=== PATIENT | male | born 1990 | race Caucasian/White ===

== ENCOUNTER 2021-11-17 16:25 | Emergency (ER) | payer MEDICAID, SELFPAY ==
[2021-11-17 16:27] VITALS: BP 143/90; PULSE 99; RESP 17; TEMP 36.6; O2SAT 98; BMI 26.5
--- NOTE | 2021-11-17 16:47 | CT_ITS ---
STUDY: CT BRAIN WITHOUT CONTRAST REASON FOR EXAM: Male, 31 years old. head injury RADIATION DOSAGE (If Supplied By Facility): CTDIvol = ( 44.99 ) mGy, DLP = ( 812.98 ) mGycm TECHNIQUE: Transaxial CT imaging of the brain was performed without administration of intravenous contrast material. Individualized dose optimization techniques were used for this CT. COMPARISON: No relevant priors. FINDINGS: Normal soft tissue structures. Normal calvarium. Normal size ventricles and extra-axial spaces for the patient''s age. Normal white matter tracts of the cerebral hemispheres. Normal basal ganglia and thalami. Normal brainstem. Normal cerebellum. There is no intracranial hemorrhage. There are no findings of an acute ischemic infarction. Normal visualized paranasal sinuses. CT/Brain/Head without Contrast IMPRESSION: Normal unenhanced CT scan of the brain. Electronically Signed: Gregory López MD at 17:20 EDT ,
--- NOTE | 2021-11-17 17:05 | EDS_ITS ---
HPI <ANGY Ocampo - Last Filed: 11/17/21 17:09> History of Present Illness Chief Complaint: Head Injury Narrative Narrative: 31-year-old male with history of post manic stress disorder, anxiety, depression presents to the emergency department with complaints of left-sided headache after a fall from 10 feet 1.5 months ago. Patient states he locked himself out of his house on October 09, 2021. Patient states that he was going up a ladder, fell off the ladder striking the right side of his head on a shovel. Patient states he had multiple minutes of LOC. Patient states that over the last month, he has had difficulty sleeping, has had personality changes, and is here for a CT scan of his brain. Patient denies any other trauma, any drug use, any blood thinners. [facility] <ANGY Ocampo - Last Filed: 11/17/21 17:09> [facility] Medical History (Updated 11/17/21 @ 17:09 by ANGY Ocampo) ADHD Asthma Myocarditis PTSD (post-traumatic stress disorder) Home Medications bupropion HCl [Wellbutrin] 75 mg PO DAILY 11/17/21 [History Last Taken Unknown] dextroamphetamine-amphetamine [Adderall] 20 mg PO DAILY 11/17/21 [History Last Taken Unknown] lithium aspartate 5 mg PO DAILY 11/17/21 [History Last Taken Unknown] Allergy/AdvReac Type Severity Reaction Status Date / Time No Known Allergies Allergy Verified 11/17/21 16:28 Social History Smoking Status: Never smoker ROS <ANGY Ocampo - Last Filed: 11/17/21 17:09> ROS ED ROS Narrative Constitutional: Negative for fever, chills, weight loss, weakness Eyes: Negative for vision loss, vision change, double vision ENT: Negative for any sore throat, ear pain, congestion Cardiovascular: Negative for any chest pain, tightness, palpitations, racing heartbeat Respiratory: Negative for any cough, sputum production, hemoptysis, shortness of breath, shortness of breath on exertion, orthopnea Gastrointestinal: Negative for any abdominal pain, nausea, vomiting, diarrhea, constipation, blood in stool, blood in vomit : Negative for any urinary frequency, incontinence, dysuria, retention, blood in urine Muscle skeletal: Negative for any muscle joint pain, stiffness, myalgias, arthralgias, neck pain, back pain Neurological: Negative for any , dizziness, syncope, numbness or tingling. Positive for headache Skin: Negative for any rashes, lumps, itching, abrasions, lacerations Psychiatric: Negative for any depression, anxiety, stress, suicidal ideation, homicidal ideation. Positive for irritation, difficulty sleeping Hematologic: Negative for any easy bruising, excessive bruising, easy bleeding Allergies: Negative for any eczema, hives, rash EXAM <ANGY Ocampo - Last Filed: 11/17/21 17:09> Physical Exam Narrative Exam Narrative: Vital signs reviewed. HEET: Head normocephalic atraumatic, TMs clear bilaterally. Posterior pharynx is clear, moist mucous membranes. Nares clear bilaterally. Pupils are equal round reactive to light. Negative for any hemotympanum, septal hematoma. Neck: Supple with no lymphadenopathy or tenderness. No signs of meningismus, negative jolt sign. Cardiac: Regular rate and rhythm no murmurs gallops or rubs, equal peripheral pulses bilaterally. Respiratory: Lungs clear to auscultation bilaterally. No chest tenderness. Abdomen: Soft, nontender, nondistended. No abdominal bruit or pulsatile masses. No hepatosplenomegaly Extremities: No peripheral edema, no signs of gross trauma or deformity. Active full range of motion of all extremities. Neuro: Cranial nerves II through XII intact, no focal neurological deficits. Skin: Clean dry and intact with no rash, purpura, petechiae, vesicles or pustules. Backslash flank: No CVA tenderness, no midline spinal tenderness, no deformity. Psych: Normal mood and affect. No SI, HI or acute psychosis. Const Vital Signs: 11/17/21 16:27 11/17/21 16:36 Temperature 97.8 F Temperature Source Temporal Pulse Rate 99 Respiratory Rate 17 Respiratory Effort Normal Respiratory Depth Normal Respiratory Pattern Normal Blood Pressure 143/90 H Blood Pressure Mean 107 Pulse Ox 98 Oxygen Delivery Method Room Air Positive well nourished and well developed General Appearance ED: well developed HEENT atraumatic <Dr. Denilson Alberto MD - Last Filed: 11/17/21 17:40> Physical Exam Const Vital Signs: 11/17/21 16:27 11/17/21 16:36 Temperature 97.8 F Temperature Source Temporal Pulse Rate 99 Respiratory Rate 17 Respiratory Effort Normal Respiratory Depth Normal Respiratory Pattern Normal Blood Pressure 143/90 H Blood Pressure Mean 107 Pulse Ox 98 Oxygen Delivery Method Room Air [facility] <ANGY Ocampo - Last Filed: 11/17/21 17:09> [facility] Narrative Medical decision making narrative: Patient appears well, patient appears nontoxic, vital signs are stable. Patient presents to the emergency department after head injury on October 09, 2021. Patient did receive a CT scan of the brain, this was unremarkable for any acute process. I did have a long conversation with this patient regarding anxiety, depression, patient will follow up with a psychiatrist in the [facility] as soon as possible. Patient has no suicidal, homicidal ideations. Patient will was also giving education regarding concussion syndrome. Patient will follow-up with his PCP as well as psychologist. Patient is stable for discharge instructed return for any worsening symptoms. Radiography Diagnostic Testing: Clinical Impression(s) from Imaging Studies Brain CT 11/17/21 16:47 IMPRESSION: Normal unenhanced CT scan of the brain. Electronically Signed: Gregory López MD at 17:20 EDT , <Dr. Denilson Alberto MD - Last Filed: 11/17/21 17:40> [facility] Narrative Medical decision making narrative: I have personally performed a face to face assessment of the patient and have reviewed the CONNIE Note. I performed a substantive portion of the visit including all aspects of the following. My bolanos findings include: History is [31-year-old male who I am seeing with her nurse practitioner. Patient had a head injury a month ago on October 09. He was knocked unconscious. He is complaining of irritability, trouble sleeping intermittent headaches.. Otherwise denies complaints. Prior to today he was not evaluated for this.] Exam is [31-year-old male normal exam. Face nontender. No swelling. Pupils round reactive light. No contusions or hematomas. C-spine nontender. Trachea midline. Heart, lung, chest, abdomen and back exam unremarkable. Extremities are nontender. Neurologic exam normal. GCS of 15.] Medical Decision Making [CAT scan was obtained. Reviewed by me. Read by the radiologist negative. Treated as a closed head injury.] Other additions or changes: [None] Radiography Diagnostic Testing: Clinical Impression(s) from Imaging Studies Brain CT 11/17/21 16:47 IMPRESSION: Normal unenhanced CT scan of the brain. Electronically Signed: Gregory López MD at 17:20 EDT , Discharge Plan Triage Chief Complaint: Head Injury ED Midlevel Provider: Francisco Sherman ED Provider: Denilson Alberto Dx/Rx/DC Orders Clinical Impression: Fall, CHI (closed head injury), Concussion syndrome Instructions: ED Concussion Prescriptions: No Action dextroamphetamine-amphetamine [Adderall] 20 mg Tablet 20 mg PO DAILY RF: 0 bupropion HCl [Wellbutrin] 75 mg Tablet 75 mg PO DAILY RF: 0 lithium aspartate 5 mg Capsule 5 mg PO DAILY RF: 0 Primary Care Provider: Care Physician,No Primary Referrals: Care Physician,No Primary [Primary Care Provider] - Print Language: Kosovan Disposition Disposition: Home, Self Care
== END 2021-11-17 17:47 | disposition home or self-care (01) ==
PROVIDERS: Emergency Provider Emergency Medicine; Visit Provider Emergency Medicine
DX: S09.90XA Unspecified injury of head, initial encounter (principal); F41.9 Anxiety disorder, unspecified; F07.81 Postconcussional syndrome; W11.XXXA Fall on and from ladder, initial encounter; F90.9 Attention-deficit hyperactivity disorder, unspecified type; F32.A Depression, unspecified; J45.909 Unspecified asthma, uncomplicated; F43.10 Post-traumatic stress disorder, unspecified; Z79.899 Other long term (current) drug therapy
CPT/HCPCS: 70450; 99281; 99282